=== PATIENT | female | born 1995 | race Two or more races ===

== ENCOUNTER → 2017-05-10 | Outpatient (CLI) | payer OTHER ==
[~2017-05-10] MED LIST: PRENATAL TABLE1 EAC1 PO
== END | disposition home or self-care (01) ==
LOC: PPH VACUNA 09:42
DX: Z23 Encounter for immunization (principal)

== ENCOUNTER → 2017-05-13 | Outpatient (CLI) | payer OTHER | END | disposition home or self-care (01) | LOC: PPH VACUNA 11:33 | DX: Z23 Encounter for immunization (principal) ==

== ENCOUNTER 2017-10-08 12:10 | Emergency (ER) | payer OTHER ==
[~2017-10-08] VITALS: Ht 154.9 cm; Wt 66.7 kg
== END 2017-10-08 14:19 | disposition home or self-care (01) ==
LOC: ER 12:10
DX: L02.416 Cutaneous abscess of left lower limb (principal)

== ENCOUNTER 2019-06-08 08:45 | Emergency (ER) | payer OTHER ==
[~2019-06-08] VITALS: Ht 160 cm; Wt 68.0 kg
[2019-06-08] MEDS ORDERED: BACTRIM DS TAB1 EACH PO (11:36)
== END 2019-06-08 12:09 | disposition home or self-care (01) ==
LOC: ER 08:45
DX: L02.415 Cutaneous abscess of right lower limb (principal)

== ENCOUNTER → 2020-05-05 07:37 | Outpatient (CLI) | payer OTHER ==
[~2020-05-05 07:37] MED LIST changes: +BACTRIM DS TAB1 EACH PO
== END | disposition home or self-care (01) ==
LOC: LAB 07:37
DX: I10 Essential (primary) hypertension (principal); R42 Dizziness and giddiness; E03.8 Other specified hypothyroidism; E66.2 Morbid (severe) obesity with alveolar hypoventilation; N39.0 Urinary tract infection, site not specified; R10.10 Upper abdominal pain, unspecified

== ENCOUNTER 2023-12-26 07:00 | Outpatient (CLI) | payer OTHER ==
[~2023-12-26 07:00] MED LIST changes: +FLONASE ALLERG9.9 ML NASAL; +OSEL75CA PO; +TUSSI PRES-B L480 ML PO
[2023-12-26 07:52] LABS: URINE APPEARANCE Clear; URINE BILIRRUBIN Negative (NEGATIVE); URINE BLOOD Negative; URINE COLOR Yellow; URINE GLUCOSE Negative (NEGATIVE); URINE KETONE Trace (NEGATIVE); URINE LEUKOCYTE Negative; URINE NITRATE Negative; URINE PROTEIN Negative (NEGATIVE)
[2023-12-26 07:55] LABS: URINE BACTERIA 1166.5 uL (0.0-1933); URINE EPITHELIAL CELLS 41.4 uL (0.0-38.8); URINE RBC 4.2 uL (0.0-20.8); URINE WBC 3.8 uL (0.0-23.2)
[2023-12-26 08:56] LABS: URINE CAST 0.15 uL (0.0-1.40)
[2023-12-26 09:09] LABS: T4 FREE 0.83 NG/ML (0.76-1.46); TSH 3.98 uIU/mL (0.358-3.74)
[2023-12-28 12:09] LABS: FOLLICLE STIMULATING HORMONE 2.1 mIU/mL (.); LEUTEINIZING HORMONE 7.8 mIU/mL (.); chla t Negative (Negative); hav igm Negative (Negative); hcv Non Reactive (Non Reactive); hep b c Negative (Negative); hep b s ag Negative (Negative); neiss Negative (Negative)
== END 2023-12-26 07:03 | disposition home or self-care (01) ==
LOC: LAB 07:00
PROVIDERS: ATTEND Obstetrics & Gynecology
DX: F52.0 Hypoactive sexual desire disorder (principal); A64 Unspecified sexually transmitted disease